=== PATIENT | female | born 1950 | race Caucasian/White ===

== ENCOUNTER 2024-07-22 14:35 | Inpatient (IN) ==
[2024-07-22] MEDS: Iodixanol 320 (CONTRAST) 100 ML SDV IV ONE (15:26)
[2024-07-22 15:27] LABS: ABS Eosinophils 0.1 10^3/uL (0.0-0.5); ABS Lymphocytes 1.2 10^3/uL (1.0-4.8); ABS Monocytes 0.4 10^3/uL (0.0-0.9); ABS Neutrophils 8.5 10^3/uL (1.5-7.6); Eosinophil % 0.6 %; Hematocrit 39.5 % (35-45); Hemoglobin 12.7 g/dL (11.5-14.3); Lymphocyte % 11.8 %; Mean Corpuscular Hemoglobin 26.1 pg (27-33); Mean Corpuscular Hgb Conc 32.1 g/dL (31-36); Mean Corpuscular Volume 81.4 fL (80-97); Mean Platelet Volume 8.6 fL (7.5-11.2); Platelet Count 169 10^3/uL (150-450); Red Blood Count 4.86 10^6/uL (3.63-4.92); Red Cell Distribution Width 17.9 % (12-17); White Blood Count 10.2 10^3/uL (3.8-11.8)
[2024-07-22 15:48] LABS: High Sens Troponin Baseline 487 pg/mL (<15)
[2024-07-22 15:51] LABS: ALT 27 U/L (7-52); Albumin 4.2 g/dL (3.5-5.7); Albumin/Globulin Ratio 1.8 (1-3); Alkaline Phosphatase 66 U/L (35-149); Anion Gap 15 mmol/L (2-16); Blood Urea Nitrogen 27 mg/dL (6-24); CO2 Carbon Dioxide 22 mmol/L (22-32); Calcium 9.3 mg/dL (8.6-10.3); Chloride 105 mmol/L (101-111); Creatinine, Serum 1.06 mg/dL (0.51-0.95); Globulin 2.3 g/dL (2-4); Glucose 141 mg/dL (70-100); Sodium 142 mmol/L (135-145); Total Bilirubin 0.9 mg/dL (0.2-1.0); Total Protein 6.5 g/dL (6.4-8.9); eGFR CKD-EPI 54.8 (>60)
[2024-07-22] MEDS ORDERED: Sulfur Hexaflouride MICROSPHR 25 MG VIAL IV PRN (15:58)
[2024-07-22 16:19] LABS: ABS Lymphocytes 1.4 10^3/uL (1.0-4.8); ABS Monocytes 0.5 10^3/uL (0.0-0.9); ABS Neutrophils 10.1 10^3/uL (1.5-7.6); ABS Nucleated RBC 0.01 10^3/ul; Eosinophil % 0.2 %; Hematocrit 39.5 % (35-45); Hemoglobin 12.8 g/dL (11.5-14.3); Lymphocyte % 11.2 %; Mean Corpuscular Hemoglobin 26.2 pg (27-33); Mean Corpuscular Hgb Conc 32.4 g/dL (31-36); Mean Corpuscular Volume 80.8 fL (80-97); Platelet Count 172 10^3/uL (150-450); Red Blood Count 4.89 10^6/uL (3.63-4.92); Red Cell Distribution Width 17.6 % (12-17); White Blood Count 12.1 10^3/uL (3.8-11.8)
[2024-07-22 16:40] LABS: Creatinine, Serum 1.07 mg/dL (0.51-0.95); Potassium Redraw 3.8 mmol/L (3.5-5.0); eGFR CKD-EPI 54.2 (>60)
[2024-07-22] MEDS: Heparin 5000 UNITS/ML 1 mL VIAL IV SCH (17:41)
[2024-07-22] MEDS: Heparin DRIP 25,000 UNITS BAG 25,000 UNITS/250 ML BAG IV SCH (17:42)
[2024-07-23 06:34] LABS: ABS Lymphocytes 1.5 10^3/uL (1.0-4.8); ABS Monocytes 0.4 10^3/uL (0.0-0.9); ABS Neutrophils 5.6 10^3/uL (1.5-7.6); Eosinophil % 0.5 %; Hematocrit 37.6 % (35-45); Hemoglobin 12.4 g/dL (11.5-14.3); Mean Corpuscular Hemoglobin 26.6 pg (27-33); Mean Corpuscular Volume 80.8 fL (80-97); Mean Platelet Volume 7.9 fL (7.5-11.2); Platelet Count 174 10^3/uL (150-450); Red Blood Count 4.65 10^6/uL (3.63-4.92); Red Cell Distribution Width 17.5 % (12-17); White Blood Count 7.6 10^3/uL (3.8-11.8)
[2024-07-23 07:13] LABS: Calcium 8.9 mg/dL (8.6-10.3); Creatinine, Serum 1.06 mg/dL (0.51-0.95); Potassium 4.3 mmol/L (3.5-5.0); eGFR CKD-EPI 54.8 (>60)
[2024-07-23] MEDS: KETOTIFEN FUMARATE BOTH EYES SCH (09:30)
[2024-07-23] MEDS: Nystatin TOP POWDER 15 GM BTL TOPICAL SCH (12:37)
[2024-07-23] MEDS: LevoCETirizine 5 mg TAB (NF) PO SCH (20:20)
[2024-07-24 05:55] LABS: ABS Eosinophils 0.1 10^3/uL (0.0-0.5); ABS Lymphocytes 2.2 10^3/uL (1.0-4.8); ABS Monocytes 0.7 10^3/uL (0.0-0.9); Eosinophil % 0.8 %; Hematocrit 38.9 % (35-45); Hemoglobin 12.6 g/dL (11.5-14.3); Lymphocyte % 24.1 %; Mean Corpuscular Hemoglobin 26.2 pg (27-33); Mean Corpuscular Hgb Conc 32.4 g/dL (31-36); Mean Corpuscular Volume 80.9 fL (80-97); Mean Platelet Volume 8.3 fL (7.5-11.2); Platelet Count 173 10^3/uL (150-450); Red Blood Count 4.81 10^6/uL (3.63-4.92); Red Cell Distribution Width 17.9 % (12-17); White Blood Count 9.1 10^3/uL (3.8-11.8)
[2024-07-24 06:23] LABS: Creatinine, Serum 1.16 mg/dL (0.51-0.95); Magnesium 1.9 mg/dL (1.9-2.7); Potassium 4.2 mmol/L (3.5-5.0); eGFR CKD-EPI 49.2 (>60)
[2024-07-24] MEDS ORDERED: PTO: LevoCETirizine 5 mg TAB (NF) PO SCH (09:00)
[2024-07-24 09:36] LABS: High Sensitivity Troponin 1 Hr 314 pg/mL (<15)
[2024-07-24] MEDS: CMC:DAPAGLIFLOZIN 10 MG TAB (NF) PO SCH (09:38)
[2024-07-24 14:16] VITALS: BP 145/86
== END 2024-07-24 15:19 | disposition home or self-care (01) | DRG 176 ==
LOC: ED 14:35 → SUATTDRO 17:20 → EDHOLD 17:20 → ICU 17:37 → MEDTELE 07-23 16:41
PROVIDERS: ADMIT Student in an Organized Health Care Education/Training Program; ATTEND Hospitalist